=== PATIENT | female | born 1960 | race Caucasian/White ===

== ENCOUNTER 2023-07-12 23:10 | Emergency (ER) | payer BC ==
[~2023-07-12] VITALS: Ht 157.5 cm; Wt 63.5 kg
[~2023-07-12 23:10] MED LIST: ATEN25TA PO; HYDROCODONE PO
[2023-07-12] MEDS ORDERED: NITR-84 PO (23:53)
[2023-07-12] MEDS ORDERED: PHEN-705 PO (23:53)
[2023-07-12 23:56] LABS: *BILIRUBIN,URIN NEGATIVE (NEGATIVE); *BLOOD, URINE 3+ (NEGATIVE); *COLOR,URINE YELLOW (YELLOW); *KETONES,URINE NEGATIVE (NEGATIVE); *PROTEIN,URINE 2+ (NEGATIVE); *UROBILINOGEN,URINE 0.2 E.U./dl (NORMAL); LEUKOCYTE ESTERASE ,URINE 2+ (NEGATIVE); NITRITE, URINE NEGATIVE (NEGATIVE); PH,URINE 7.5 (5.0-8.0); UGLUCOSE NEGATIVE (NEGATIVE)
[2023-07-13 00:04] LABS: *CLARITY,URINE HAZY (CLEAR)
[2023-07-13 00:27] LABS: BACTERIA,URINE NONE SEEN /HPF (NONE SEEN); RBC,URINE TNTC /HPF (0-3); SQUAMOUS EPITHELIAL CELL,UR FEW /HPF (NONE SEEN); WBC,URINE TNTC /HPF (0-3)
[2023-07-13] MEDS ORDERED: PHENAZOPYRIDINE HCL 100 MG TABLET ONE (00:34)
[2023-07-13] MEDS ORDERED: NITROFURANTOIN/NITROFURAN MAC 100 MG CAPSULE PO ONE ×2 (00:34→00:45)
[2023-07-13] MEDS ORDERED: OXYCODONE/APAP 5-325 MG TABLET ONE (00:38)
[2023-07-13 00:43] VITALS: BP 131/78; O2SAT 98
[2023-07-13] MEDS ORDERED: PHENAZOPYRIDINE HCL 100 MG TABLET PO ONE (00:45)
[2023-07-13] MEDS ORDERED: OXYCODONE/APAP 5-325 MG TABLET PO ONE (00:45)
== END 2023-07-13 00:43 | disposition home or self-care (01) ==
LOC: ER 23:15
DX: N30.00 Acute cystitis without hematuria (principal); E78.5 Hyperlipidemia, unspecified; Z79.899 Other long term (current) drug therapy
CPT/HCPCS: A4663